=== PATIENT | male | born 1955 | race American Indian/Alaskan Native ===

== ENCOUNTER 2020-03-13 06:56 | Day surgery (SDC) | payer BC, OTHER ==
[~2020-03-13 06:56] MED LIST: Cefuroxime 10 MG/ML SYRINGE EYELF SCH; Lidocaine 1% PF 2 ML SDV INJECT SCH; Pilocarpine 4% Ophth Soln 15 ML Bot EYELF SCH
[2020-03-13] MEDS: Polymyxin B/Trimethoprim 10 ML Bottle EYELF SCH ×3 (07:09→08:51)
[2020-03-13] MEDS: Brimonidine 0.2% Ophth Soln 5 ML Bottle EYELF SCH ×3 (07:13→08:51)
[2020-03-13] MEDS: Phenylephrine 2.5% Ophth Soln 15 ML Bot EYELF SCH ×5 (07:17→08:27)
[2020-03-13] MEDS: Tropicamide 1% Ophth Soln 15 ML Bottle EYELF SCH ×4 (07:21→08:03)
--- NOTE | 2020-03-13 07:54 | PCM.PREANE ---
Preanesthetic Assessment - Procedure Proposed Procedure: Left eye cataract /c IOL - Anesthesia/Transfusion/Family Hx Anesthesia History: Prior Anesthesia Without Reaction - Review of Systems General: No Symptoms Pulmonary: No Symptoms Cardiovascular: No Symptoms Gastrointestinal: No Symptoms Neurological: No Symptoms Other: Reports: None - Physical Assessment NPO Status Date: 03/12/20 NPO Status Time: 18:30 Vital Signs: Last Vital Signs Temp 97.1 F 03/13/20 07:00 Pulse 77 03/13/20 07:00 Resp 16 03/13/20 07:00 BP 112/58 L 03/13/20 07:00 Pulse Ox 100 03/13/20 07:00 Height: 1.83 m Weight: 84.822 kg ASA Class: 3 Mental Status: Alert & Oriented x3 Airway Class: Mallampati = 3 Dentition: Reports: Missing Tooth/Teeth (poor dentition) Thyro-Mental Finger Breadths: 3 Mouth Opening Finger Breadths: 3 ROM/Head Extension: Full Lungs: Clear to Auscultation, Normal Respiratory Effort Cardiovascular: Regular Rate, Regular Rhythm - Lab Values: Laboratory Last Values POC Glucose 124 mg/dL (80-115) H 03/13/20 07:27 - Allergies Allergies/Adverse Reactions: Allergies Allergy/AdvReac Type Severity Reaction Status Date / Time No Known Allergies Allergy Verified 03/12/20 08:55 - Acknowledgements Anesthesia Type Planned: MAC Pt an Appropriate Candidate for the Planned Anesthesia: Yes Alternatives and Risks of Anesthesia Discussed w Pt/Guardian: Yes Pt/Guardian Understands and Agrees with Anesthesia Plan: Yes PreAnesthesia Questionnaire Cardiovascular History: Reports: Hypertension, Other (See Below) (Hx of DVT, on Eliquis) Genitourinary History: Reports: Prostate Disorder (prostate cancer) Endocrine/Metabolic History: Reports: Diabetes, Type I Oncologic (Cancer) History: Reports: Prostate - HOME MEDS Home Medications: Home Meds Apixaban [Eliquis] 5 mg PO BID 03/13/20 [History] Enalapril [Vasotec] 5 mg PO DAILY 03/13/20 [History] Furosemide [Lasix] 20 mg PO DAILY 03/13/20 [History] Insulin Aspart [NovoLOG] 1 dose SQ TID PRN 03/13/20 [History] Liraglutide [Victoza 2-Steven] 1 dose IM ASDIRECTED 03/13/20 [History] predniSONE [Prednisone] 5 mg PO DAILY 03/13/20 [History] - CURRENT (IN HOUSE) MEDS Current Meds: Current Medications Brimonidine Tartrate (Alphagan 0.2% Ophth Soln) 0 ml EYELF ASDIRECTED [facility] Stop: 03/13/20 18:00 Last Admin: 03/13/20 07:46 Dose: 1 drop Documented by: Cefuroxime Sodium (Zinacef) 0 mg EYELF ASDIRECTED [facility] Stop: 03/13/20 18:00 Lidocaine HCl (Xylocaine-Mpf 1%) 0 ml INJECT ASDIRECTED [facility] Stop: 03/13/20 18:00 Phenylephrine HCl (Milo-Synephrine 2.5% Ophth Soln) 0 ml EYELF ASDIRECTED [facility] Stop: 03/13/20 18:00 Last Admin: 03/13/20 07:33 Dose: 1 drop Documented by: Pilocarpine HCl (Pilocar 4% Ophth Soln) 0 ml EYELF ASDIRECTED [facility] Stop: 03/13/20 18:00 Polymyxin/Trimethoprim Sulfate (Polytrim Ophth Soln) 0 ml EYELF ASDIRECTED [facility] Stop: 03/13/20 18:00 Last Admin: 03/13/20 07:42 Dose: 1 drop Documented by: Tetracaine HCl (Tetracaine 0.5% Steri-Unit Kalie) 0 ml EYEBOTH ASDIRECTED [facility] Stop: 03/13/20 18:00 Tropicamide (Mydriacyl 1% Ophth Soln) 0 ml EYELF ASDIRECTED [facility] Stop: 03/13/20 18:00 Last Admin: 03/13/20 07:37 Dose: 1 drop Documented by:
[2020-03-13] MEDS: Tetracaine HCl/PF 0.5% 4 ML Bottle EYEBOTH SCH ×2 (08:14→08:38)
--- NOTE | 2020-03-13 08:45 | PCM48HPAN ---
Post Anesthesia Note - EVALUATION WITHIN 48HRS OF ANESTHETIC Vital Signs in Normal Range: Yes Patient Participated in Evaluation: Yes Respiratory Function Stable: Yes Airway Patent: Yes Cardiovascular Function Stable: Yes Hydration Status Stable: Yes Pain Control Satisfactory: Yes Nausea and Vomiting Control Satisfactory: Yes Mental Status Recovered: Yes Vital Signs: Last Vital Signs Temp 36.2 C 03/13/20 07:00 Pulse 77 03/13/20 07:00 Resp 16 03/13/20 07:00 BP 112/58 L 03/13/20 07:00 Pulse Ox 100 03/13/20 07:00
== END 2020-03-13 09:05 | disposition home or self-care (01) ==
LOC: JD.SDS 06:56
PROVIDERS: ATTEND Ophthalmology
DX: E10.36 Type 1 diabetes mellitus with diabetic cataract (principal); H25.813 Combined forms of age-related cataract, bilateral; E10.3293 Type 1 diabetes mellitus with mild nonproliferative diabetic retinopathy without macular edema, bilateral; H35.372 Puckering of macula, left eye; H40.003 Preglaucoma, unspecified, bilateral; H21.81 Floppy iris syndrome; H02.831 Dermatochalasis of right upper eyelid; H16.223 Keratoconjunctivitis sicca, not specified as Sjogren's, bilateral; I10 Essential (primary) hypertension; Z85.46 Personal history of malignant neoplasm of prostate; Z79.01 Long term (current) use of anticoagulants; Z79.899 Other long term (current) drug therapy; Z79.4 Long term (current) use of insulin
CPT/HCPCS: 66984; 82962; C1780; J0697; J2001

== ENCOUNTER 2020-05-08 08:36 | Day surgery (SDC) | payer OTHER ==
[~2020-05-08 08:36] MED LIST changes: +Brimonidine 0.2% Ophth Soln 5 ML Bottle EYERT SCH; -Cefuroxime 10 MG/ML SYRINGE EYELF SCH; +Cefuroxime 10 MG/ML SYRINGE EYERT SCH; +Phenylephrine 2.5% Ophth Soln 2 ML Bot EYERT SCH; -Pilocarpine 4% Ophth Soln 15 ML Bot EYELF SCH; +Pilocarpine 4% Ophth Soln 15 ML Bot EYERT SCH; +Polymyxin B/Trimethoprim 10 ML Bottle EYERT SCH; +Tetracaine HCl/PF 0.5% 4 ML Bottle EYEBOTH SCH; +Tropicamide 1% Ophth Soln 15 ML Bottle EYERT SCH
[2020-05-08] MEDS: Polymyxin B/Trimethoprim 10 ML Bottle EYERT SCH ×4 (09:18→11:00)
[2020-05-08] MEDS: Brimonidine 0.2% Ophth Soln 5 ML Bottle EYERT SCH ×4 (09:23→11:00)
[2020-05-08] MEDS: Phenylephrine 2.5% Ophth Soln 2 ML Bot EYERT SCH ×6 (09:30→10:38)
[2020-05-08] MEDS: Tropicamide 1% Ophth Soln 15 ML Bottle EYERT SCH ×4 (09:34→10:12)
--- NOTE | 2020-05-08 09:58 | PCM.PREANE ---
Preanesthetic Assessment - Anesthesia/Transfusion/Family Hx Anesthesia History: Prior Anesthesia Without Reaction Family History of Anesthesia Reaction: No - Review of Systems General: No Symptoms Pulmonary: No Symptoms Cardiovascular: No Symptoms Gastrointestinal: No Symptoms Other: Reports: Easy Bleeding, Easy Bruising, Diabetes (insulin dependent, last dose 05/07/20) - Physical Assessment NPO Status Date: 05/07/20 NPO Status Time: 06:00 (sip of H2O) Weight: 85.729 kg Mental Status: Alert & Oriented x3 Airway Class: Mallampati = 2 Dentition: Reports: Normal Dentition Thyro-Mental Finger Breadths: 3 Mouth Opening Finger Breadths: 3 ROM/Head Extension: Full Lungs: Clear to Auscultation, Normal Respiratory Effort Cardiovascular: Regular Rate, Regular Rhythm - Allergies Allergies/Adverse Reactions: Allergies Allergy/AdvReac Type Severity Reaction Status Date / Time No Known Allergies Allergy Verified 05/07/20 13:57 - Blood Blood Available: No Product(s) Available: None - Anesthesia Plan Pre-Op Medication Ordered: None - Acknowledgements Anesthesia Type Planned: MAC Pt an Appropriate Candidate for the Planned Anesthesia: Yes Alternatives and Risks of Anesthesia Discussed w Pt/Guardian: Yes Pt/Guardian Understands and Agrees with Anesthesia Plan: Yes PreAnesthesia Questionnaire Cardiovascular History: Reports: Hypertension, Other (See Below) (Hx of DVT, on Eliquis) Genitourinary History: Reports: Prostate Disorder (prostate cancer) Endocrine/Metabolic History: Reports: Diabetes, Type I Oncologic (Cancer) History: Reports: Prostate - HOME MEDS Home Medications: Home Meds Apixaban [Eliquis] 5 mg PO BID 03/13/20 [History] Enalapril [Vasotec] 5 mg PO DAILY 03/13/20 [History] Furosemide [Lasix] 20 mg PO DAILY 03/13/20 [History] Insulin Aspart [NovoLOG] 1 dose SQ TID PRN 03/13/20 [History] Liraglutide [Victoza 2-Steven] 1 dose IM ASDIRECTED 03/13/20 [History] predniSONE [Prednisone] 5 mg PO DAILY 03/13/20 [History] - CURRENT (IN HOUSE) MEDS Current Meds: Current Medications Brimonidine Tartrate (Brimonidine 0.2% Ophth Soln 5 Ml Bottle) 0 ml EYERT ASDIRECTED RANI Stop: 05/08/20 18:00 Last Admin: 05/08/20 09:23 Dose: 1 drop Documented by: Cefuroxime Sodium (Cefuroxime 10 Mg/Ml Syringe) 0 mg EYERT ASDIRECTED [facility] Stop: 05/08/20 18:00 Lidocaine HCl (Lidocaine 1% Pf 2 Ml Sdv) 0 ml INJECT ASDIRECTED RANI Stop: 05/08/20 18:00 Phenylephrine HCl (Phenylephrine 2.5% Ophth Soln 2 Ml Bot) 0 ml EYERT ASDIRECTED RANI Stop: 05/08/20 18:00 Last Admin: 05/08/20 09:48 Dose: 1 drop Documented by: Pilocarpine HCl (Pilocarpine 4% Ophth Soln 15 Ml Bot) 0 ml EYERT ASDIRECTED [facility] Stop: 05/08/20 18:00 Polymyxin/Trimethoprim Sulfate (Polymyxin B/Trimethoprim 10 Ml Bottle) 0 ml EYERT ASDIRECTED [facility] Stop: 05/08/20 18:00 Last Admin: 05/08/20 09:18 Dose: 1 drop Documented by: Tetracaine HCl (Tetracaine Hcl/Pf 0.5% 4 Ml Bottle) 0 ml EYEBOTH ASDIRECTED [facility] Stop: 05/08/20 18:00 Tropicamide (Tropicamide 1% Ophth Soln 15 Ml Bottle) 0 ml EYERT ASDIRECTED [facility] Stop: 05/08/20 18:00 Last Admin: 05/08/20 09:43 Dose: 1 drop Documented by: Discontinued Medications Brimonidine Tartrate (Alphagan 0.2% Ophth Soln) 0 ml EYERT ASDIRECTED [facility] Stop: 04/12/20 18:00 Cefuroxime Sodium (Zinacef) 0 mg EYERT ASDIRECTED [facility] Stop: 04/12/20 18:00 Lidocaine HCl (Xylocaine-Mpf 1%) 0 ml INJECT ASDIRECTED [facility] Stop: 04/12/20 18:00 Phenylephrine HCl (Milo-Synephrine 2.5% Ophth Soln) 0 ml EYERT ASDIRECTED [facility] Stop: 04/12/20 18:00 Pilocarpine HCl (Pilocar 4% Ophth Soln) 0 ml EYERT ASDIRECTED [facility] Stop: 04/12/20 18:00 Polymyxin/Trimethoprim Sulfate (Polytrim Ophth Soln) 0 ml EYERT ASDIRECTED [facility] Stop: 04/12/20 18:00 Tetracaine HCl (Tetracaine 0.5% Steri-Unit Kalie) 0 ml EYEBOTH ASDIRECTED [facility] Stop: 04/12/20 18:00 Tropicamide (Mydriacyl 1% Ophth Soln) 0 ml EYERT ASDIRECTED RANI Stop: 04/12/20 18:00
[2020-05-08] MEDS: Tetracaine HCl/PF 0.5% 4 ML Bottle EYEBOTH SCH ×3 (10:01→10:47)
[2020-05-08] MEDS: Lidocaine 1% PF 2 ML SDV INJECT SCH ×2 (10:27→10:48)
[2020-05-08] MEDS: Pilocarpine 4% Ophth Soln 15 ML Bot EYERT SCH ×2 (10:28→11:00)
[2020-05-08] MEDS: Cefuroxime 10 MG/ML SYRINGE EYERT SCH ×2 (10:28→10:59)
--- NOTE | 2020-05-08 11:36 | PCM48HPAN ---
Post Anesthesia Note - EVALUATION WITHIN 48HRS OF ANESTHETIC Vital Signs in Normal Range: Yes Patient Participated in Evaluation: Yes Respiratory Function Stable: Yes Airway Patent: Yes Cardiovascular Function Stable: Yes Hydration Status Stable: Yes Pain Control Satisfactory: Yes Nausea and Vomiting Control Satisfactory: Yes Mental Status Recovered: Yes Vital Signs: Last Vital Signs Temp 36.5 C 05/08/20 08:30 Pulse 70 05/08/20 08:30 Resp 20 05/08/20 08:30 BP 107/51 L 05/08/20 08:30 Pulse Ox 99 05/08/20 08:30
== END 2020-05-08 11:13 | disposition home or self-care (01) ==
LOC: JD.SDS 08:36
PROVIDERS: ATTEND Ophthalmology
DX: E10.36 Type 1 diabetes mellitus with diabetic cataract (principal); H25.811 Combined forms of age-related cataract, right eye; I10 Essential (primary) hypertension; Z79.899 Other long term (current) drug therapy; Z85.46 Personal history of malignant neoplasm of prostate; Z98.890 Other specified postprocedural states
CPT/HCPCS: 66984; 82962; C1780; J0697